=== PATIENT | male | born 1985 | race Caucasian/White ===

== ENCOUNTER 2019-05-16 16:14 | Emergency (ER) | payer OTHER ==
[~2019-05-16] VITALS: Ht 188 cm; Wt 127.3 kg
[2019-05-16 16:17] VITALS: BP 155/97
[2019-05-16] MEDS ORDERED: LISI-661 PO (16:22)
== END 2019-05-16 16:55 | disposition left against medical advice (07) ==
LOC: EMS 16:15
DX: R06.02 Shortness of breath (principal); Z53.21 Procedure and treatment not carried out due to patient leaving prior to being seen by health care provider
CPT/HCPCS: 93005

== ENCOUNTER 2019-07-22 21:58 | Emergency (ER) | payer OTHER ==
[~2019-07-22] VITALS: Ht 188 cm; Wt 127.3 kg
[~2019-07-22 21:58] MED LIST: LISI-661 PO
[2019-07-23] MEDS ORDERED: BUPIVACAINE HCL/PF 0.25% 10 ML VIAL INJ ONE (00:15)
[2019-07-23 00:20] VITALS: BP 122/69
== END 2019-07-23 01:00 | disposition home or self-care (01) ==
LOC: EMS 22:01
DX: S01.01XA Laceration without foreign body of scalp, initial encounter (principal); I10 Essential (primary) hypertension; G43.909 Migraine, unspecified, not intractable, without status migrainosus; Z79.899 Other long term (current) drug therapy; Y04.2XXA Assault by strike against or bumped into by another person, initial encounter; Y93.89 Activity, other specified; Y92.89 Other specified places as the place of occurrence of the external cause; Y99.8 Other external cause status
CPT/HCPCS: 12002; 99283; J3490

== ENCOUNTER 2019-07-28 06:19 | Emergency (ER) | payer OTHER ==
[~2019-07-28] VITALS: Ht 185.4 cm; Wt 129.6 kg
[2019-07-28 06:39] VITALS: BP 148/80
== END 2019-07-28 08:16 | disposition home or self-care (01) ==
LOC: EMS 06:25
DX: S01.01XD Laceration without foreign body of scalp, subsequent encounter (principal); J06.9 Acute upper respiratory infection, unspecified; X58.XXXD Exposure to other specified factors, subsequent encounter

== ENCOUNTER 2021-08-30 10:36 | Emergency (ER) | payer OTHER ==
[~2021-08-30] VITALS: Ht 185.4 cm; Wt 129.0 kg
[~2021-08-30 10:36] MED LIST changes: -LISI-661 PO; +LISI-893 PO
[2021-08-30] MEDS ORDERED: IBUPROFEN 600 MG TABLET PO ONE (13:30)
[2021-08-30] MEDS ORDERED: LIDOCAINE 5% TRANSDERMAL PATCH TD ONE (13:30)
[2021-08-30] MEDS ORDERED: METHOCARBAMOL 500 MG TABLET PO ONE (13:30)
[2021-08-30] MEDS ORDERED: METH-659 PO (14:50)
[2021-08-30] MEDS ORDERED: IBUP-2070 PO (14:50)
[2021-08-30 15:24] VITALS: BP 138/67
== END 2021-08-30 15:26 | disposition home or self-care (01) ==
LOC: EMS 10:38
DX: M54.50 Low back pain, unspecified (principal); I10 Essential (primary) hypertension
CPT/HCPCS: 72100; 99284; Z7502; Z7610

== ENCOUNTER 2022-09-04 16:04 | Emergency (ER) | payer OTHER ==
[~2022-09-04] VITALS: Ht 185.4 cm; Wt 127.3 kg
[~2022-09-04 16:04] MED LIST changes: +IBUP-1492 PO; +METH-659 PO
[2022-09-04 16:05] VITALS: BP 150/80
[2022-09-04] MEDS ORDERED: AMOX1TAB16 PO (16:07)
== END 2022-09-04 16:36 | disposition home or self-care (01) ==
LOC: EMS 16:08
DX: H66.41 Suppurative otitis media, unspecified, right ear (principal); I10 Essential (primary) hypertension
CPT/HCPCS: 99283; Z7502

== ENCOUNTER 2022-09-07 14:56 | Emergency (ER) | payer OTHER ==
[~2022-09-07] VITALS: Ht 185.4 cm; Wt 129.6 kg
[~2022-09-07 14:56] MED LIST changes: +AMOX1TAB16 PO; -IBUP-1492 PO; -METH-659 PO
[2022-09-07 15:24] VITALS: BP 140/73
== END 2022-09-07 19:04 | disposition home or self-care (01) ==
LOC: EMS 15:00
DX: H61.21 Impacted cerumen, right ear (principal); I10 Essential (primary) hypertension
CPT/HCPCS: 99282; Z7502

== ENCOUNTER 2023-02-19 09:31 | Emergency (ER) | payer OTHER ==
[~2023-02-19] VITALS: Ht 185.4 cm; Wt 131.8 kg
[2023-02-19 09:33] VITALS: TEMP 98.3
[2023-02-19 10:34] VITALS: BP 145/73; PULSE 89; RESP 18
== END 2023-02-19 10:35 | disposition home or self-care (01) ==
LOC: EMS 09:31
DX: R10.9 Unspecified abdominal pain (principal); I10 Essential (primary) hypertension
CPT/HCPCS: 99281; Z7502

== ENCOUNTER 2023-04-06 19:15 | Emergency (ER) | payer OTHER ==
[~2023-04-06] VITALS: Ht 185.4 cm; Wt 140.9 kg
[~2023-04-06 19:15] MED LIST changes: -AMOX1TAB16 PO
[2023-04-06 19:17] VITALS: TEMP 98.1
[2023-04-06] MEDS ORDERED: FAMOTIDINE 20 MG TABLET PO ONE (20:15)
[2023-04-06] MEDS ORDERED: MAG HYDROX/AL HYDROX/SIMETH 30 ML SUSP UDCUP PO ONE (20:15)
[2023-04-06 20:31] VITALS: BP 145/79; PULSE 95; RESP 20
== END 2023-04-06 21:30 | disposition home or self-care (01) ==
LOC: EMS 19:15
DX: K21.9 Gastro-esophageal reflux disease without esophagitis (principal); I10 Essential (primary) hypertension
CPT/HCPCS: 93005; 99283; 99284

== ENCOUNTER 2023-09-09 13:28 | Emergency (ER) | payer OTHER ==
[~2023-09-09] VITALS: Ht 185.4 cm; Wt 109.1 kg
[2023-09-09 13:35] VITALS: TEMP 98.2
[2023-09-09 13:56] LABS: BASOPHILS % (AUTO) 0.5 % (0.0-2.0); HEMOGLOBIN 14.5 g/dL (13.5-17.5); LYMPHOCYTES # (AUTO) 2.5 K/uL (1.0-4.8); LYMPHOCYTES % (AUTO) 28.4 % (22.0-44.0); MEAN CORPUSCULAR HEMOGLOBIN 29.9 pg (26.0-34.0); MEAN CORPUSCULAR HGB CONC 33.7 G/dL (31.0-37.0); MEAN CORPUSCULAR VOLUME 89 fL (80-100); MONOCYTES # (AUTO) 0.6 K/uL (0.1-1.0); MONOCYTES % (AUTO) 7.3 % (2.0-9.0); NEUTROPHILS # (AUTO) 5.6 K/uL (1.8-7.7); NEUTROPHILS % (AUTO) 62.8 % (40.0-70.0); PLATELET COUNT (AUTO) 308 K/uL (150-450); RED BLOOD CELL COUNT(AUTO) 4.83 MIL/uL (4.50-5.90); WHITE BLOOD COUNT (AUTO) 8.9 K/uL (4.5-11.0)
[2023-09-09 14:13] LABS: TROPONIN I-HIGH SENSITIVITY 5 ng/L (<76)
[2023-09-09 14:47] LABS: ANION GAP 13 mmol/L (8-16); CALCIUM, TOTAL 8.7 mg/dL (8.8-10.5); CARBON DIOXIDE 26 mmol/L (22-29); CHLORIDE 98 mmol/L (98-107); CREATININE 1.13 mg/dL (0.60-1.30); GLOMERULAR FILTR. RATE CALC > 60 mL/min (>60); GLUCOSE,RANDOM 114 mg/dL (70-110); POTASSIUM 3.5 mmol/L (3.5-5.1); SODIUM SERUM 137 mmol/L (136-145); UREA NITROGEN, BLOOD 14 mg/dL (7-18)
[2023-09-09 14:50] LABS: ALANINE AMINOTRANSFERASE 58 U/L (12-78); ALBUMIN 4.3 g/dL (3.4-5.0); ALKALINE PHOSPHATASE 70 U/L (46-116); ASPARTATE AMINOTRANSFERASE 23 U/L (15-37); BILIRUBIN,TOTAL 0.4 mg/dL (0.1-1.0); TOTAL PROTEIN, SERUM 7.5 g/dL (6.4-8.2)
[2023-09-09 16:23] VITALS: BP 151/85; PULSE 97; RESP 16
[2023-09-09] MEDS ORDERED: LORazepam 1 MG TABLET PO ONE (16:30)
== END 2023-09-09 16:34 | disposition left against medical advice (07) ==
LOC: EMS 13:42
DX: F41.9 Anxiety disorder, unspecified (principal); F14.10 Cocaine abuse, uncomplicated; R07.89 Other chest pain; I10 Essential (primary) hypertension
CPT/HCPCS: 71045; 80053; 84484; 85025; 93005; 99285; 36415-L1; 36415-TC

== ENCOUNTER 2023-11-07 11:53 | Emergency (ER) | payer OTHER ==
[~2023-11-07] VITALS: Ht 185.4 cm; Wt 140.9 kg
[2023-11-07 11:58] VITALS: TEMP 98.3
[2023-11-07 12:36] LABS: APPEARANCE,URINE CLEAR (CLEAR); BILIRUBIN,URINE NEGATIVE (NEGATIVE); COLOR,URINE LIGHT YELLOW (YELLOW); GLUCOSE, URINE (UA) NEGATIVE (NEGATIVE); KETONES,URINE NEGATIVE (NEGATIVE); LEUKOCYTE ESTERASE ,URINE NEGATIVE (NEGATIVE); NITRATE,URINE NEGATIVE (NEGATIVE); OCCULT BLOOD,URINE TRACE (NEGATIVE); PH,URINE 5.5 (5.0-8.0); PROTEIN,URINE NEGATIVE (NEGATIVE); SPECIFIC GRAVITIY, URINE 1.026 (1.003-1.030); UROBILINOGEN,URINE <=1.0 mg/dL (<=1.0)
[2023-11-07 12:41] LABS: BACTERIA,URINE None Seen /HPF (None Seen); WBC,URINE None Seen /HPF (0-5)
[2023-11-07] MEDS: KETOROLAC TROMETHAMINE 30 MG/ML VIAL IVP ONE (13:21)
[2023-11-07] MEDS: SODIUM CHLORIDE 0.9% 500 ML IV ONE (13:22)
[2023-11-07 13:25] VITALS: BP 136/80; PULSE 95; RESP 18
[2023-11-07 13:33] LABS: BASOPHILS % (AUTO) 0.4 % (0.0-2.0); EOSINOPHILS % (AUTO) 0.8 % (1.0-6.0); HEMATOCRIT 43.9 % (41-53); LYMPHOCYTES # (AUTO) 1.7 K/uL (1.0-4.8); LYMPHOCYTES % (AUTO) 17.6 % (22.0-44.0); MEAN CORPUSCULAR HEMOGLOBIN 30.4 pg (26.0-34.0); MEAN CORPUSCULAR HGB CONC 34.1 G/dL (31.0-37.0); MEAN CORPUSCULAR VOLUME 89 fL (80-100); MONOCYTES # (AUTO) 0.8 K/uL (0.1-1.0); NEUTROPHILS # (AUTO) 7.1 K/uL (1.8-7.7); NEUTROPHILS % (AUTO) 73.2 % (40.0-70.0); PLATELET COUNT (AUTO) 286 K/uL (150-450); RED BLOOD CELL COUNT(AUTO) 4.93 MIL/uL (4.50-5.90); RED CELL DISTRIBUTION WIDTH 12.8 % (11.5-14.5); WHITE BLOOD COUNT (AUTO) 9.7 K/uL (4.5-11.0)
[2023-11-07 13:43] LABS: ANION GAP 14 mmol/L (8-16); CALCIUM, TOTAL 8.3 mg/dL (8.8-10.5); CARBON DIOXIDE 23 mmol/L (22-29); CHLORIDE 99 mmol/L (98-107); CREATININE 1.09 mg/dL (0.60-1.30); GLOMERULAR FILTR. RATE CALC > 60 mL/min (>60); GLUCOSE,RANDOM 116 mg/dL (70-110); POTASSIUM 3.9 mmol/L (3.5-5.1); SODIUM SERUM 136 mmol/L (136-145); UREA NITROGEN, BLOOD 17 mg/dL (7-18)
[2023-11-07] MEDS ORDERED: IBUP-1492 PO (14:13)
== END 2023-11-07 16:18 | disposition home or self-care (01) ==
LOC: EMS 12:14
DX: R10.9 Unspecified abdominal pain (principal); I10 Essential (primary) hypertension
CPT/HCPCS: 99285; 74176; 96374; 96361; 80048; 81001; 85025; 36415; J1885; J7040

== ENCOUNTER 2024-03-25 00:39 | Emergency (ER) | payer OTHER ==
[~2024-03-25] VITALS: Ht 185.4 cm; Wt 140.0 kg
[~2024-03-25 00:39] MED LIST changes: +IBUP-1492 PO
[2024-03-25 00:55] VITALS: BP 150/87; PULSE 117; RESP 18; TEMP 97.6
== END 2024-03-25 02:36 | disposition left against medical advice (07) ==
LOC: EMS 00:40
DX: R20.2 Paresthesia of skin (principal); Z53.21 Procedure and treatment not carried out due to patient leaving prior to being seen by health care provider

== ENCOUNTER 2024-09-23 00:12 | Emergency (ER) | payer OTHER ==
[~2024-09-23] VITALS: Ht 185.4 cm; Wt 136.4 kg
[2024-09-23 00:18] VITALS: TEMP 98.5
[2024-09-23 00:41] LABS: BASOPHILS % (AUTO) 0.4 % (0.0-2.0); EOSINOPHILS % (AUTO) 1.1 % (1.0-6.0); HEMATOCRIT 46.7 % (41-53); HEMOGLOBIN 15.5 g/dL (13.5-17.5); LYMPHOCYTES # (AUTO) 1.9 K/uL (1.0-4.8); LYMPHOCYTES % (AUTO) 21.4 % (22.0-44.0); MEAN CORPUSCULAR HEMOGLOBIN 29.4 pg (26.0-34.0); MEAN CORPUSCULAR HGB CONC 33.2 G/dL (31.0-37.0); MEAN CORPUSCULAR VOLUME 89 fL (80-100); MONOCYTES # (AUTO) 0.9 K/uL (0.1-1.0); MONOCYTES % (AUTO) 10.6 % (2.0-9.0); NEUTROPHILS # (AUTO) 5.8 K/uL (1.8-7.7); NEUTROPHILS % (AUTO) 66.5 % (40.0-70.0); PLATELET COUNT (AUTO) 259 K/uL (150-450); RED BLOOD CELL COUNT(AUTO) 5.28 MIL/uL (4.50-5.90); RED CELL DISTRIBUTION WIDTH 13.1 % (11.5-14.5); WHITE BLOOD COUNT (AUTO) 8.7 K/uL (4.5-11.0)
[2024-09-23] MEDS: ONDANSETRON 4 MG TABLET PO ONE (01:02)
[2024-09-23] MEDS: PHENOBARB/HYOSCY/ATROPINE/SCOP 5 ML UDCUP ELIXIR PO ONE (01:02)
[2024-09-23 01:04] LABS: ANION GAP 9 mmol/L (8-16); CALCIUM, TOTAL 8.3 mg/dL (8.8-10.5); CARBON DIOXIDE 28 mmol/L (22-29); CHLORIDE 101 mmol/L (98-107); CREATININE 1.05 mg/dL (0.60-1.30); GLOMERULAR FILTR. RATE CALC > 60 mL/min (>60); GLUCOSE,RANDOM 105 mg/dL (70-110); POTASSIUM 3.3 mmol/L (3.5-5.1); SODIUM SERUM 138 mmol/L (136-145); UREA NITROGEN, BLOOD 13 mg/dL (7-18)
[2024-09-23] MEDS: POTASSIUM CHLORIDE 20 MEQ ER TABLET PO ONE (02:29)
[2024-09-23 02:43] VITALS: BP 138/79; PULSE 81; RESP 16; O2SAT 97
== END 2024-09-23 03:17 | disposition home or self-care (01) ==
LOC: EMS 00:12
DX: R19.7 Diarrhea, unspecified (principal); I10 Essential (primary) hypertension; F41.9 Anxiety disorder, unspecified; R11.0 Nausea; Z79.899 Other long term (current) drug therapy
CPT/HCPCS: 99284; 80048; 85025; 36415; Q0162